=== PATIENT | female | born 1980 | race African-American/Black ===

== ENCOUNTER 2016-12-12 15:14 | Emergency (ER) | payer BC ==
[~2016-12-12] VITALS: Ht 165.1 cm; Wt 85.7 kg
[~2016-12-12 15:14] MED LIST: CIPROFLOXACIN500 M1 PO; FLEXERIL PO; IBUPROFEN 200200 M1 PO; IBUPROFEN 600600 M1 PO; NAPROSYN500 MG PO; NOHOMEMEDICATIONS; NORCO 5-325 TA1 EACH PO; NORFLEX100 MG PO; PENICILLIN VK500 MG PO; PERCOCET 5-3251 EACH PO; PHENERGAN 25 MG25 M1 PO; PREDNISONE 10 M10 MG PO; VALIUM2 MG PO; ZOFRAN 4 MG ORAL4 M1 DIS
[2016-12-12] MEDS ORDERED: HYDROCODONE-AP1 EAC6 PO (16:09)
[2016-12-12 16:54] VITALS: BP 151/79
== END 2016-12-12 16:50 | disposition home or self-care (01) ==
LOC: ER 15:14
DX: S92.512A Displaced fracture of proximal phalanx of left lesser toe(s), initial encounter for closed fracture (principal); F41.0 Panic disorder [episodic paroxysmal anxiety]; G89.29 Other chronic pain; M54.9 Dorsalgia, unspecified; F17.210 Nicotine dependence, cigarettes, uncomplicated; F15.10 Other stimulant abuse, uncomplicated; F10.99 Alcohol use, unspecified with unspecified alcohol-induced disorder; W22.03XA Walked into furniture, initial encounter; Y93.89 Activity, other specified; Y92.89 Other specified places as the place of occurrence of the external cause; Y99.8 Other external cause status

== ENCOUNTER 2018-04-12 11:05 | Emergency (ER) | payer OTHER ==
[~2018-04-12] VITALS: Ht 165.1 cm; Wt 93.4 kg
--- NOTE | ~2018-04-12 | EKG ---
[place] [address] [facility] [employer] [place] [address] ELECTROCARDIOGRAM REPORT Name: ANIBAL,NORMAN SHARON Room #: [facility]#: [id number] Admission: 04/12/18 Attend Phys: Discharge: 04/12/18 Date of : 84 Report #: [id number] THIS REPORT FOR: //name// [facility] ED Test Date: 2018-04-12 Test Time: 11:41:55 Pat Name: NORMAN BARNETT Department: Room: Gender: F Dish Carrier: NELLIE : 1980 Requested By: Calin Gill Order Number: [id number] MD: Montana Collins Measurements Intervals Roberta Rate: 67 P: -14 NH: 173 QRS: 24 QRSD: 100 T: 15 QT: 390 QTc: 412 Interpretive Statements Sinus rhythm No significant abnormality Baseline wander in lead(s) V1,V2,V3,V4,V5,V6 No previous ECG available for comparison Electronically Signed On 04-12-2018 16:45:06 CDT by Montana Collins [email or web address] <ELECTRONICALLY SIGNED> By: Montana Collins MD, [facility] 04/12/18 1645 1141 1141 Montana Collins MD, FAC /EPI
[~2018-04-12 11:05] MED LIST changes: +HYDROCODONE-AP1 EAC6 PO
[2018-04-12 11:32] LABS: URINE BILIRUBIN NEGATIVE (Negative); URINE BLOOD TRACE (Negative); URINE CLARITY CLEAR; URINE COLOR YELLOW; URINE GLUCOSE-RANDOM* NEGATIVE (Negative); URINE KETONES NEGATIVE (Negative); URINE LEUKOCYTES-REFLEX NEGATIVE (Negative); URINE NITRITE-REFLEX NEGATIVE (Negative); URINE PROTEIN (DIPSTICK) NEGATIVE (Negative); URINE SPECIFIC GRAVITY 1.025 (1.005-1.035); URINE UROBILINOGEN 0.2 E.U./dl (0.2-1.0)
[2018-04-12 12:01] LABS: ABSOLUTE NEUTROPHILS 4.1 thou/uL (1.4-8.2); BASOPHILS 0.9 % (0.0-2.0); EOSINOPHILS 7.3 % (0.0-3.0); HEMATOCRIT 35.1 % (37.0-47.0); HEMOGLOBIN 11.9 gm/dL (12.0-15.0); LYMPHOCYTES 28.7 % (24.0-44.0); MCH 30.9 pg (26.0-34.0); MCHC 33.8 g/dL (28.0-37.0); MCV 91.7 fL (80.0-100.0); MONOCYTES 9.5 % (1.0-8.0); PLATELET COUNT 299 thou/uL (150-400); POLYS 53.6 % (36.0-66.0); RBC 3.83 mil/uL (4.20-5.00); RDW 14.4 % (10.5-14.5); WBC 7.7 thou/uL (4.0-11.0)
[2018-04-12 12:10] LABS: ANION GAP 6 mmol/L (7-16); BUN 5 mg/dL (7-18); CHLORIDE 106 mmol/L (98-107); CO2 27 mmol/L (21-32); CREATININE 0.9 mg/dL (0.6-1.0); GLUCOSE 94 mg/dL (74-106); SODIUM 139 mmol/L (136-145)
[2018-04-12 12:19] LABS: ALBUMIN 3.1 g/dL (3.4-5.0); LIPASE 65 U/L (73-393); SGOT 16 U/L (15-37); SGPT 22 U/L (30-65); TOTAL BILIRUBIN 0.4 mg/dL (<0.1-1.0); TOTAL PROTEIN 6.5 g/dL (6.4-8.2); TROPONIN-I <0.06 ng/mL (<0.06)
[2018-04-12] MEDS ORDERED: PRILOSEC 20 MG20 MG PO (13:00)
[2018-04-12] MEDS ORDERED: ONDANSETRON HCL4 M2 PO (13:00)
[2018-04-12] MEDS ORDERED: CARAFATE 1 GM TA1 G1 PO (13:00)
[2018-04-12 13:11] VITALS: BP 131/95
== END 2018-04-12 13:14 | disposition home or self-care (01) ==
LOC: ER 11:05
PROVIDERS: Physician Assistant
DX: K29.70 Gastritis, unspecified, without bleeding (principal); M54.9 Dorsalgia, unspecified; G89.29 Other chronic pain; F17.210 Nicotine dependence, cigarettes, uncomplicated; Z98.51 Tubal ligation status

== ENCOUNTER 2018-11-13 10:53 | Emergency (ER) | payer OTHER ==
[~2018-11-13] VITALS: Ht 165.1 cm; Wt 74.8 kg
[~2018-11-13 10:53] MED LIST changes: +CARAFATE 1 GM TA1 G1 PO; +ONDANSETRON HCL4 M2 PO; +PRILOSEC 20 MG20 MG PO
[2018-11-13 11:33] LABS: ABSOLUTE NEUTROPHILS 4.5 thou/uL (1.4-8.2); BASOPHILS 0.9 % (0.0-2.0); EOSINOPHILS 7.5 % (0.0-3.0); HEMATOCRIT 32.5 % (37.0-47.0); HEMOGLOBIN 10.9 gm/dL (12.0-15.0); LYMPHOCYTES 26.3 % (24.0-44.0); MCH 28.6 pg (26.0-34.0); MCHC 33.5 g/dL (28.0-37.0); MCV 85.3 fL (80.0-100.0); MONOCYTES 9.4 % (1.0-8.0); PLATELET COUNT 329 thou/uL (150-400); POLYS 55.9 % (36.0-66.0); RBC 3.81 mil/uL (4.20-5.00); RDW 16.2 % (10.5-14.5)
[2018-11-13 11:37] LABS: CALCIUM 9.3 mg/dL (8.5-10.1); CREATININE 0.8 mg/dL (0.6-1.0); POTASSIUM 3.9 mmol/L (3.5-5.1)
[2018-11-13 11:44] LABS: ALBUMIN 3.5 g/dL (3.4-5.0); TOTAL BILIRUBIN 0.3 mg/dL (<0.1-1.0)
[2018-11-13 12:14] LABS: URINE BILIRUBIN NEGATIVE (Negative); URINE BLOOD NEGATIVE (Negative); URINE CLARITY CLEAR; URINE COLOR YELLOW; URINE GLUCOSE-RANDOM* NEGATIVE (Negative); URINE KETONES NEGATIVE (Negative); URINE LEUKOCYTES NEGATIVE (Negative); URINE NITRITE NEGATIVE (Negative); URINE PROTEIN (DIPSTICK) NEGATIVE (Negative); URINE SPECIFIC GRAVITY <= 1.005 (1.005-1.035); URINE UROBILINOGEN 0.2 E.U./dl (0.2-1.0)
[2018-11-13] MEDS ORDERED: ZANTAC 150MG T150 MG PO (13:44)
[2018-11-13] MEDS ORDERED: BENTYL 20 MG TA20 M1 PO (13:44)
[2018-11-13 13:57] VITALS: BP 128/76
== END 2018-11-13 13:59 | disposition home or self-care (01) ==
LOC: ER 10:53
PROVIDERS: Nurse Practitioner Family
DX: R10.30 Lower abdominal pain, unspecified (principal); R19.7 Diarrhea, unspecified; G89.29 Other chronic pain; R30.0 Dysuria; R11.0 Nausea; F17.210 Nicotine dependence, cigarettes, uncomplicated

== ENCOUNTER 2019-01-30 01:13 | Emergency (ER) | payer OTHER ==
[~2019-01-30] VITALS: Ht 165.1 cm; Wt 90.7 kg
[~2019-01-30 01:13] MED LIST changes: +BENTYL 20 MG TA20 M1 PO; +ZANTAC 150MG T150 MG PO
[2019-01-30 01:55] LABS: URINE BILIRUBIN NEGATIVE (Negative); URINE BLOOD TRACE (Negative); URINE CLARITY CLEAR; URINE COLOR YELLOW; URINE GLUCOSE-RANDOM* NEGATIVE (Negative); URINE KETONES NEGATIVE (Negative); URINE LEUKOCYTES NEGATIVE (Negative); URINE NITRITE NEGATIVE (Negative); URINE PROTEIN (DIPSTICK) NEGATIVE (Negative); URINE SPECIFIC GRAVITY 1.015 (1.005-1.035); URINE UROBILINOGEN 0.2 E.U./dl (0.2-1.0)
[2019-01-30 02:14] LABS: ABSOLUTE NEUTROPHILS 5.3 thou/uL (1.4-8.2); BASOPHILS 1.1 % (0.0-2.0); EOSINOPHILS 4.8 % (0.0-3.0); HEMATOCRIT 35.4 % (37.0-47.0); HEMOGLOBIN 11.6 gm/dL (12.0-15.0); LYMPHOCYTES 24.1 % (24.0-44.0); MCH 28.2 pg (26.0-34.0); MCHC 32.8 g/dL (28.0-37.0); MONOCYTES 8.5 % (1.0-8.0); PLATELET COUNT 347 thou/uL (150-400); POLYS 61.5 % (36.0-66.0); RBC 4.12 mil/uL (4.20-5.00); RDW 16.5 % (10.5-14.5); WBC 8.7 thou/uL (4.0-11.0)
[2019-01-30 02:15] LABS: CALCIUM 9.4 mg/dL (8.5-10.1); CREATININE 0.7 mg/dL (0.6-1.0); POTASSIUM 3.6 mmol/L (3.5-5.1)
[2019-01-30 02:21] LABS: ALBUMIN 3.8 g/dL (3.4-5.0); TOTAL BILIRUBIN 0.2 mg/dL (<0.1-1.0); TOTAL PROTEIN 7.6 g/dL (6.4-8.2)
[2019-01-30] MEDS ORDERED: TRAMADOL 50 MG50 MG PO (04:38)
[2019-01-30] MEDS ORDERED: ZOFRAN ODT4 MG DISSOLVE (04:38)
[2019-01-30] MEDS ORDERED: NAPROSYN500 MG PO (04:38)
[2019-01-30] MEDS ORDERED: ONDANSETRON ODT8 MG PO (04:40)
[2019-01-30 05:00] VITALS: BP 128/77
== END 2019-01-30 05:00 | disposition home or self-care (01) ==
LOC: ER 01:13
PROVIDERS: Emergency Medicine
DX: R10.31 Right lower quadrant pain (principal); R11.2 Nausea with vomiting, unspecified; G89.29 Other chronic pain; F17.210 Nicotine dependence, cigarettes, uncomplicated; Z98.51 Tubal ligation status